=== PATIENT | male | born 1955 | race American Indian/Alaskan Native ===

== ENCOUNTER 2020-06-22 06:53 | Day surgery (SDC) | payer MEDICARE, OTHER ==
[2020-06-22] MEDS ORDERED: Sodium Chloride 0.9% 1,000 ML IV SCH (07:00)
[2020-06-22] MEDS ORDERED: Propofol 200 MG/20 ML SDV ONE (07:21)
[2020-06-22] MEDS ORDERED: fentaNYL 100 MCG/2 ML SDV ONE (07:22)
[2020-06-22] MEDS ORDERED: Midazolam 1 MG/ML 2 ML SDV ONE (07:22)
--- NOTE | 2020-06-22 09:37 | OR ---
DATE OF PROCEDURE: 06/22/2020 SURGEON: Satnam Mariscal MD PROCEDURE: Colonoscopy. FINDINGS: 1. No evidence of anal cancer recurrence. 2. No other gross abnormalities. COMPLICATIONS: None. ECONOMETRICS PROFESSOR: None. ANESTHETIC: MAC. PREOPERATIVE DIAGNOSIS: History of anal cancer. POSTOPERATIVE DIAGNOSIS: History of anal cancer. RISKS: Risks, benefits, alternatives and limitations including but not limited to infection, bleeding, perforation, false positives and false negatives were explained to the patient who wished to proceed. PROCEDURE IN DETAIL: The patient was placed in left lateral decubitus position. Digital rectal exam was performed without abnormality. There was a scar consistent with previous surgery. There were no nodularities or mucosal abnormalities. The scope was then introduced and advanced atraumatically to the ileocecal valve. A photo was taken. Scope was brought back to the ascending, transverse, descending colon and retroflexed. No evidence of old or new blood. No masses. No polyps. No colitis. No areas of concern. Greater than 8 minutes was spent removing the scope. The prep was acceptable, approximately 90% of luminal surface. The patient tolerated the procedure well. Satnam Mariscal MD /[id number]
== END 2020-06-22 10:00 | disposition home or self-care (01) ==
LOC: JP.SDS 06:53
PROVIDERS: ATTEND Surgery
DX: Z12.11 Encounter for screening for malignant neoplasm of colon (principal); E11.22 Type 2 diabetes mellitus with diabetic chronic kidney disease; N18.9 Chronic kidney disease, unspecified; Z85.048 Personal history of other malignant neoplasm of rectum, rectosigmoid junction, and anus; Z88.0 Allergy status to penicillin
CPT/HCPCS: G0105; J2250; J2704; J3010; J7030